=== PATIENT | female | born 1965 | race Native Hawaiian/Other Pacific Islander ===

== ENCOUNTER 2016-08-20 10:35 | Outpatient (CLI) | payer OTHER | END 2016-08-20 19:40 | disposition home or self-care (01) | LOC: MAMMO 10:35 | DX: Z12.31 Encounter for screening mammogram for malignant neoplasm of breast (principal) | CPT/HCPCS: G0202-TC ==

== ENCOUNTER 2016-08-26 12:33 | Outpatient (CLI) | payer OTHER | END 2016-08-26 13:45 | disposition home or self-care (01) | LOC: MAMMO 12:33 | DX: N63 Unspecified lump in breast (principal) | CPT/HCPCS: G0206-TC ==

== ENCOUNTER 2016-09-15 12:59 | Outpatient (CLI) | payer OTHER | END 2016-09-15 19:38 | disposition home or self-care (01) | LOC: RAD 12:59 | DX: Z13.820 Encounter for screening for osteoporosis (principal); M85.89 Other specified disorders of bone density and structure, multiple sites ==

== ENCOUNTER 2016-10-07 07:27 | Day surgery (SDC) | payer OTHER ==
[~2016-10-07] VITALS: Ht 30.5 cm; Wt 0.5 kg
== END 2016-10-07 09:55 | disposition home or self-care (01) ==
LOC: OR 07:27
PROC: 0DJD8ZZ Inspection of Lower Intestinal Tract, Via Natural or Artificial Opening Endoscopic (ICD-10-PCS; principal; 2016-10-07)
DX: K64.8 Other hemorrhoids (principal); Z12.11 Encounter for screening for malignant neoplasm of colon
CPT/HCPCS: J2001; J2250; J2704; J3010; J3490

== ENCOUNTER 2017-11-11 10:49 | Outpatient (CLI) | payer OTHER | END 2017-11-11 23:21 | disposition home or self-care (01) | LOC: MAMMO 10:49 | DX: Z12.31 Encounter for screening mammogram for malignant neoplasm of breast (principal) ==